=== PATIENT | male | born 1955 | race Caucasian/White ===

== ENCOUNTER → 2024-06-14 07:34 | Outpatient (REF) | payer MEDICARE, SELFPAY | LOC: RCS 07:34 | PROVIDERS: ATTENDING PHYSICIAN Internal Medicine; FAMILY PHYSICIAN Internal Medicine | DX: I25.10 Atherosclerotic heart disease of native coronary artery without angina pectoris (principal); I10 Essential (primary) hypertension; I45.4 Nonspecific intraventricular block; R60.0 Localized edema | CPT/HCPCS: 93306; Q9950 ==

== ENCOUNTER → 2025-03-01 07:01 | Outpatient (REF) | payer MEDICARE, SELFPAY | LOC: HWRCS 07:01 | PROVIDERS: ATTENDING PHYSICIAN Internal Medicine; FAMILY PHYSICIAN Internal Medicine | DX: R68.89 Other general symptoms and signs (principal); I25.10 Atherosclerotic heart disease of native coronary artery without angina pectoris; Z95.1 Presence of aortocoronary bypass graft; I45.5 Other specified heart block; R94.31 Abnormal electrocardiogram [ECG] [EKG] | CPT/HCPCS: 78452; 93017; A9500 ==